=== PATIENT | male | born 1950 | race Caucasian/White ===

== ENCOUNTER 2019-03-17 14:41 | Inpatient (IN) | payer MEDICARE ==
[2019-03-17 15:05] LABS: #Eosinphils 0.1 thou/uL (0.0-0.7); #Monocytes 0.5 thou/uL (0.11-0.59); #Neutrophils 4.2 thou/uL (1.40-6.50); %Basophils 0.2 % (0.0-1.0); %Lymphocytes 30.2 % (21.0-51.0); %Monocytes 6.7 % (0.0-10.0); %Neutrophils 61.8 % (42.0-75.0); Hemoglobin 15.5 g/dL (14.0-18.0); Mean Corpuscular HGB CONC 33.9 g/dL (32.0-36.0); Mean Corpuscular Hemoglobin 32.8 pg (27.0-31.0); Mean Corpuscular Volume 96.6 fL (78.0-98.0); Mean Platelet Volume 7.5 fL (7.4-10.4); Platelet Count 253 thou/uL (130-400); RBC Distribution Width 11.2 % (11.5-14.5); Red Blood Cell (RBC) Count 4.74 mill/uL (4.70-6.10); White Blood Cell (WBC) Count 6.8 thou/uL (4.8-10.8)
--- NOTE | 2019-03-17 15:12 | RAD ---
Chest AP view INDICATION: Chest pain with palpitations COMPARISON: September 01, 2015 FINDINGS: Lungs:The lungs are clear Cardiac silhouette:The cardiomediastinal silhouette appears within normal limits. Pulmonary vasculature:Normal Pleural spaces:No pleural effusion or pneumothorax is demonstrated. Upper abdomen:No abnormality seen. Osseous structures: No acute osseous abnormality. Additional findings:None. IMPRESSION: No acute cardiopulmonary abnormality.
[2019-03-17 15:37] LABS: ALT (SGPT) 21 U/L (8-55); AST (SGOT) 34 U/L (5-34); Albumin 4.3 g/dL (3.4-4.8); Alkaline Phosphatase 67 U/L (40-110); Anion Gap 16 mmol/L (10-20); BUN (Urea Nitrogen) 16 mg/dL (8.4-25.7); Bilirubin, Total 1.2 mg/dL (0.2-1.2); CK (CPK) 169 U/L (30-200); Calc. Creatinine Clearance 0 mL/min (70-130); Calcium 9.5 mg/dL (7.8-10.44); Carbon Dioxide 23 mmol/L (23-31); Chloride 102 mmol/L (98-107); Estimated GFR-MDRD 76; Globulin 4.3 g/dL (2.4-3.5); Glucose 91 mg/dL (80-115); Protein, Total 8.6 g/dL (5.8-8.1); Sodium 136 mmol/L (136-145)
[2019-03-17] MEDS ORDERED: Magnesium 2 GM/50 ML BAG (IN WATER) ONE (15:38)
[2019-03-17] MEDS ORDERED: Diltiazem 125 MG/25 ML ONE (16:23)
[2019-03-17 16:33] LABS: Prothrombin Time 13.6 SEC (12.0-14.7)
[2019-03-17 16:34] LABS: PTT 32.1 SEC (22.9-36.1)
[2019-03-17 16:45] LABS: Acetaminophen Less than 6.0 mcg/mL (10.0-30.0); Alcohol Less than 10 mg/dL (Less than 10); Salicylate Less than 8.0 mg/dL (15.0-30.0)
[2019-03-17 16:46] LABS: Magnesium 3.3 mg/dL (1.6-2.6)
[2019-03-17 17:00] LABS: Bilirubin Negative (Negative); Blood, Urine Negative (Negative); Clarity Clear (Clear); Glucose, Urine (Dipstick) Normal (Negative); Leukocyte Negative Leu/uL (Negative); Nitrite Negative (Negative); Protein, Urine (Dipstick) Negative (Neg-Trace); Urobilinogen Normal mg/dL (Less than 2)
[2019-03-17 17:08] LABS: Amphetamine Not Detected (NotDetected); Barbiturates Screen Not Detected (NotDetected); Benzodiazepine Screen Not Detected (NotDetected); Cocaine Metabolite Screen Not Detected (NotDetected); Medtox Control Line Valid? VALID (VALID); Medtox Reader # READER 4; Methadone Not Detected (NotDetected); Methamphetamine Not Detected (NotDetected); Opiate Screen Not Detected (NotDetected); Oxycodone Screen Not Detected (NotDetected); Phencyclidine (PCP) Not Detected (NotDetected); THC/Cannabinoid Screen Not Detected (NotDetected); Tricyclic Screen Not Detected (NotDetected)
[2019-03-17] MEDS ORDERED: Acetaminophen 325 MG TAB PO PRN (17:34)
[2019-03-17] MEDS ORDERED: Enoxaparin Sodium 80 MG/0.8 ML SYRINGE ONE (18:23)
--- NOTE | 2019-03-17 18:26 | PDOC.EVN ---
Event Note - Event Note Event Note: [id number] HP
[2019-03-17 18:32] LABS: Troponin I Less than 0.010 ng/mL (< 0.028)
--- NOTE | 2019-03-17 21:08 | HP ---
CHIEF COMPLAINT: Palpitations. HISTORY OF PRESENT ILLNESS: Mr. Funes is a 68-year-old male with past medical history of atrial fibrillation, cardioversion and ablation back in 2015, presented to the emergency room with tachycardia and palpitations that started Thursday. The patient reports that he was seen at Urgent Care one week ago for flu-like symptoms, discharged with antibiotics for possible pneumonia. The patient followed up today with his primary care physician and was told to go to the emergency room because of tachycardia and heart rate of 149. Workup in the emergency room; the patient was found to be in atrial fibrillation/atrial flutter with 2:1 block. The patient was given diltiazem, followed by diltiazem drip. ED physician discussed the case with neon glass bender, who advised to continue with diltiazem drip, start Lovenox, admit and get an echo, possible cardioversion in a.m. if the patient remains in atrial flutter/atrial fibrillation. The patient otherwise denies chest pain, nausea, vomiting, or abdominal pain. Denies fever or chills. The patient is being admitted to the hospital for further management. PAST MEDICAL HISTORY: 1. Hyperlipidemia. 2. Benign prostatic hypertrophy. 3. Kidney stone. 4. Atrial fibrillation/flutter. PAST SURGICAL HISTORY: 1. Cardiac ablation on 07/23/2015. 2. Skin cancer removal. 3. Cardioversion. SOCIAL HISTORY: The patient drinks socially. No smoking history. Lives at home with family. FAMILY HISTORY: Reviewed and noncontributory. ALLERGIES: NO KNOWN ALLERGIES. REVIEW OF SYSTEMS: Review of 14 systems negative except what is mentioned in history of present illness. PHYSICAL EXAMINATION: GENERAL: The patient is awake, alert, does not appear to be in acute distress. VITAL SIGNS: Blood pressure 115/72; pulse initially was 145, currently is 122; respiratory rate is 20; temperature 97.9; and oxygen saturation is 100% on room air. HEAD AND NECK: Normocephalic, atraumatic. Eyes are equal and reactive to light, clear and anicteric. Neck is supple. No JVD. CHEST: Fair bilateral air entry. HEART: Irregularly irregular, tachycardic. ABDOMEN: Soft, nontender. Bowel sounds present. NEUROLOGIC: Awake, alert, and oriented x3. PSYCHIATRIC: Normal mood. EXTREMITIES: No clubbing, no cyanosis. MUSCULOSKELETAL: No calf tenderness. No joint tenderness. GENITOURINARY: No suprapubic tenderness. No flank tenderness. LABORATORY DATA: Urine drug screen negative. TSH is 1.2. Sodium 136, potassium 5.0, BUN is 76, and creatinine 0.9. Troponin 0.01. CBC; WBC 6.8, hemoglobin 16.5, and platelets 263. IMAGING DATA: Chest x-ray, no acute finding. ASSESSMENT: A 68-year-old male with history of atrial fibrillation/flutter with ablation/cardioversion back in 2015, presents with palpitations. The patient was found to be in atrial fibrillation/flutter with rapid ventricular response. 1. Atrial flutter with rapid ventricular response. 2. Hyperlipidemia. 3. Benign prostatic hypertrophy. 4. History of atrial fibrillation/flutter. 5. History of cardioversion/ablation. PLAN: 1. Admit. 2. Telemetry monitoring. 3. Continue with IV diltiazem drip. 4. Anticoagulation started in the ED. 5. 2D echo. 6. Pit Shovel Operator consulted for evaluation and further recommendations. 7. Reconcile home medications. 8. DVT prophylaxis. The patient is on anticoagulation. EXPECTED LENGTH OF STAY: Two midnights or more. Job ID: [id number]
[2019-03-17 21:20] VITALS: BMI 23.6
[2019-03-17 21:29] LABS: Troponin I 0.014 ng/mL (< 0.028)
[2019-03-17] MEDS: Sodium Chloride 0.9% 1,000 ML IV SCH (21:44)
[2019-03-17] MEDS: Famotidine/PF 20 mg/2ml Vial SLOW IVP SCH (21:46)
[2019-03-18] MEDS: Diltiazem 125 MG in Sodium Chloride 0.9% 100 ML IVPB SCH ×2 (01:05→10:04)
[2019-03-18 04:43] LABS: #Eosinphils 0.1 thou/uL (0.0-0.7); #Lymphocytes 2.3 thou/uL (1.20-3.40); #Monocytes 0.5 thou/uL (0.11-0.59); #Neutrophils 4.5 thou/uL (1.40-6.50); %Basophils 0.1 % (0.0-1.0); %Eosinophils 1.8 % (0.0-10.0); %Lymphocytes 30.5 % (21.0-51.0); %Neutrophils 60.6 % (42.0-75.0); Hemoglobin 13.4 g/dL (14.0-18.0); Mean Corpuscular HGB CONC 34.4 g/dL (32.0-36.0); Mean Platelet Volume 6.9 fL (7.4-10.4); Platelet Count 250 thou/uL (130-400); Red Blood Cell (RBC) Count 4.07 mill/uL (4.70-6.10); White Blood Cell (WBC) Count 7.5 thou/uL (4.8-10.8)
[2019-03-18 05:07] LABS: Anion Gap 10 mmol/L (10-20); BUN (Urea Nitrogen) 17 mg/dL (8.4-25.7); Calc. Creatinine Clearance 94 mL/min (70-130); Calcium 8.3 mg/dL (7.8-10.44); Carbon Dioxide 26 mmol/L (23-31); Chloride 105 mmol/L (98-107); Estimated GFR-MDRD 87; Glucose 98 mg/dL (80-115); Potassium 4.1 mmol/L (3.5-5.1); Sodium 137 mmol/L (136-145)
[2019-03-18 09:00] LABS: Hemoglobin 14.1 g/dL (14.0-18.0); Platelet Count 285 thou/uL (130-400)
[2019-03-18] MEDS ORDERED: Enoxaparin Sodium 80 MG/0.8 ML SYRINGE SC SCH (09:00)
[2019-03-18] MEDS: Sodium Chloride 0.9% 1,000 ML IV SCH ×2 (10:05→11:34)
[2019-03-18] MEDS: Famotidine/PF 20 mg/2ml Vial SLOW IVP SCH ×2 (10:06→20:53)
[2019-03-18] MEDS ORDERED: PROPOFOL 200 MG/20 ML VIAL ONE (11:11)
--- NOTE | 2019-03-18 11:48 | PDOC.EVN ---
Event Note - Event Note Event Note: [id number] progress
--- NOTE | 2019-03-18 12:09 | PRG ---
DATE OF SERVICE: 03/18/2019 The patient is being followed after he is admitted for atrial fibrillation/flutter with rapid ventricular response. SUBJECTIVE: As per the patient, he said that he had an episode this morning of ?panic attack and felt nauseous and lightheaded, resolved. The patient continues to be in atrial fibrillation with heart rate in the low 100s. OBJECTIVE: GENERAL: Does not appear to be in acute distress. VITAL SIGNS: Temperature 97.6, heart rate 110, respiratory rate 18, blood pressure 99/65. HEAD AND NECK: Normocephalic and atraumatic. NECK: Supple. No JVD. CHEST: Fair bilateral air entry. HEART: Irregularly irregular, tachycardic. ABDOMEN: Soft, nontender. Bowel sounds are present. NEUROLOGIC: Awake, alert, and oriented x3. PSYCH: Unable to assess. EXTREMITIES: No clubbing. No cyanosis. MUSCULOSKELETAL: No back tenderness. No joint tenderness. GENITOURINARY: No suprapubic tenderness. No flank tenderness. IMAGING STUDIES: 2D echo is still pending. ASSESSMENT AND PLAN: 1. A 68-year-old male with history of atrial fibrillation/flutter with history of ablations/cardioversion back in 2016, presents with palpitations, was found to be in atrial fibrillation/flutter with rapid ventricular response. 2. Atrial flutter with rapid ventricular response. 3. Hyperlipidemia. 4. Benign prostatic hypertrophy. 5. History of cardioversion/ablation in the past. PLAN: 1. Continue with telemetry monitoring. 2. The patient is on IV diltiazem drip. 3. Cardiology is being consulted for further management. A 2D echo results to be followed. Continue with anticoagulation. Check TSH. Job ID: [id number]
[2019-03-18] MEDS ORDERED: PROPOFOL 20 ML ONE ×2 (15:35→15:37)
--- NOTE | 2019-03-18 16:08 | CON ---
DATE OF CONSULTATION: 03/18/2019 REASON FOR CONSULTATION: Atrial flutter with RVR. HISTORY OF PRESENT ILLNESS: Mr. Funes is a 68-year-old gentleman, previously known to our practice for history of persistent atrial fibrillation. He is a retired teacher. He was taken to the EP lab and underwent PVAI with Dr. Cazares on 07/23/2015. Following his ablation, he developed early recurrence during his recovery phase and underwent cardioversion with Multaq for arrhythmia suppression. He did not tolerate Multaq therapy and had some GI side effects with this medication. This was discontinued. Since that time, he has undergone a normal recovery following his ablation, and ultimately, his oral anticoagulation was stopped for CHADS-VASc score of 1 at that time, . We find that he presents to the emergency room yesterday in atrial flutter with RVR. Mr. Funes had been experiencing flu-like symptoms and was taking some [id number]-yawpehz medications for his symptoms. He went to his primary care provider, was started on antibiotics for possible respiratory illness. During a followup appointment, it was found that his heart rate was elevated at approximately 150 beats per minute. An EKG was performed, showing atrial flutter and he was then redirected to the emergency room. Since that time, he has been placed on diltiazem drip with limited success at controlling his rates. Despite his ongoing RVR, he is minimally symptomatic and is feeling markedly improved even this morning. He denies any heart racing, palpitations, chest pain, pressure, syncope, near syncope, stroke, or stroke-like symptoms. REVIEW OF SYSTEMS: Positive for flu-like symptoms, malaise, and weakness. A 12-point review of systems was negative and as per HPI. PAST MEDICAL HISTORY: 1. Persistent atrial fibrillation status post PVAI on 07/23/2015 with early recurrence, prompting cardioversion and temporary Multaq therapy. 2. Normal coronary arteries by prior left heart catheterization in the remote past. 3. Migraines. 4. Chronic kidney disease, stage 3. 5. Preserved LVEF. HOME MEDICATIONS: 1. Stiolto daily. 2. Robitussin DM p.r.n. flu symptoms. 3. Flomax 0.4 mg daily. 4. Pravastatin 40 mg nightly. 5. Doxycycline 100 mg p.o. q.12 for recent respiratory infection. 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 Denies alcohol, tobacco, or illicit drug use. FAMILY HISTORY: Negative for sudden cardiac . OBJECTIVE: VITAL SIGNS: Temperature 97.9, pulse 139, blood pressure 120/69, respirations 16, and oxygen is 96% on room air. GENERAL: The patient is alert and oriented. Speech is clear. Affect is appropriate. He is in no apparent distress at time of the exam. HEENT: He is normocephalic and atraumatic. Sclerae anicteric. EOMs are intact. Oral mucosa is moist and pink with adequate dentition. NECK: Supple without jugular venous distention. There is no lymphadenopathy. Carotids are without bruit. LUNGS: Clear to auscultation bilaterally. Slightly diminished in the bases, but respirations are even and unlabored with good bilateral excursion. CARDIAC: His heart rate is regular, but rapid with crisp S1 and S2. His PMI is nondisplaced. ABDOMEN: Soft and nontender without palpable masses. Hepatojugular reflux is negative. EXTREMITIES: Warm and dry to touch. Well perfused without clubbing, cyanosis, or edema. NEUROLOGIC: He is grossly intact and nonfocal. Gait was not assessed. DATABASE: Hematology: Unremarkable. Chemistry: Potassium 4.1 and creatinine is 0.87. Troponins were negative. TSH 1.02 and free T4 of 1.49. Liver enzymes were within normal limits. An echocardiogram performed on 03/18/2019, estimates ejection fraction of 50% to 55% with mild MR and mild TR. Left atrium is of normal size. Right atrium is mildly enlarged. Telemetry and EKG showed atypical atrial flutter, largely with 2:1 AV conduction with rates of approximately 100 to 140 beats per minute, variable with his diltiazem drip. IMPRESSION: 1. Recurrent atrial arrhythmias with a history of persistent atrial fibrillation status post pulmonary venous ablation isolation in 2016, now sustaining an atypical atrial flutter. 2. History of normal coronaries with normal ejection fraction by recent echocardiogram. 3. History of renal insufficiency. 4. Evfk-jf-ennxqlos mitral regurgitation. PLAN AND RECOMMENDATIONS: Mr. Funes has experienced a late recurrence of atrial arrhythmias following an ablation in the remote past. He has not been anticoagulated for the past few years as OAC was discontinued in light of his low CHADS-VASc score with no recurrent atrial arrhythmias. It is unclear as to when his atrial arrhythmias began. He is largely asymptomatic with his rapid rate. We discussed atrial arrhythmias treatment options moving forward. As he is not on anticoagulation, immediate treatment could include a MEY to evaluate for any intracardiac thrombus before proceeding with cardioversion to restore sinus rhythm. Cardioversion may be enough restoring sinus rhythm as this could be an isolated event provoked by recent viral illness. Alternatively, he may require antiarrhythmic therapy for suppression of arrhythmias to maintain sinus rhythm following cardioversion. As he has not tolerated Multaq in the past, flecainide could be a consideration as his ejection fraction has been normal and he has been known to have normal coronary arteries by left heart catheterization. Alternatively, if recurrence is seen, we could consider a redo left atrial ablation in the future. If no arrangements for MEY cardioversion could be done at this time, we could have him undergo more rate control and be discharged and brought back as an outpatient for MEY cardioversion in the future. Thank you for allowing me to participate in the care of this patient. We will make arrangements. Job ID: [id number]
[2019-03-18] MEDS ORDERED: Flecainide 50 MG TAB PO SCH (16:15)
--- NOTE | 2019-03-18 16:26 | OP ---
DATE OF PROCEDURE: 03/18/2019 PROCEDURE PERFORMED: Electrical cardioversion. REASON FOR PROCEDURE: Mr. Funes is a 68-year-old man with prior history of atrial fibrillation status post pulmonary venous isolation procedure about 3 years ago, now with recurrent atypical atrial flutter. MEY prior to the procedure demonstrates no intracardiac clots, normal left atrial size. DESCRIPTION OF PROCEDURE: The patient received propofol by anesthesia specialist. After adequate level of sedation achieved, a synchronized 100-joule shock promptly converted the patient back to sinus rhythm. CONCLUSION: Successful cardioversion. PLAN: Start flecainide and oral anticoagulation with close followup in the office for consideration of redo ablation. Job ID: [id number]
--- NOTE | 2019-03-18 16:43 | EKG ---
Test Reason : Blood Pressure : / mmHG Vent. Rate : 116 BPM Atrial Rate : 278 BPM P-R Int : 000 ms QRS Dur : 084 ms QT Int : 332 ms P-R-T Axes : 000 092 -17 degrees QTc Int : 461 ms Atrial flutter with variable A-V block Rightward axis Abnormal QRS-T angle, consider primary T wave abnormality Abnormal ECG When compared with ECG of 17-MAR-2019 14:56, (Unconfirmed) No significant change was found Confirmed by DR. Deborah BENEDICT ([id number]) on 03/18/2019 4:42:37 PM Referred By: HECTOR Confirmed By:DR. Deborah BENEDICT
[2019-03-18] MEDS: Apixaban 5 MG TAB PO SCH (20:53)
[2019-03-19] MEDS: Sodium Chloride 0.9% 1,000 ML IV SCH (05:53)
[2019-03-19] MEDS: Apixaban 5 MG TAB PO SCH (08:43)
[2019-03-19] MEDS: Famotidine/PF 20 mg/2ml Vial SLOW IVP SCH (08:44)
[2019-03-19] MEDS ORDERED: Flecainide 50 MG TAB PO SCH (09:00)
[2019-03-19 11:54] VITALS: BP 109/71; TEMP 97.6
--- NOTE | 2019-03-19 17:19 | ECHO ---
DATE OF SERVICE: 03/18/19 REFERRING PHYSICIAN: Dr. Jeff Leblanc REASON FOR PROCEDURE: The patient is a pleasant 68-year-old man with history of persistent atrial fibrillation. Prior ablat ion three years ago. Recurrent atrial flutter off and on in duration. Here for MEY to rule out floccu lence. The patient is not on anticoagulation. PROCEDURE: The patient received Propofol by Anesthesia specialist. After adequate level of sedation achieved, a standard transesophageal echocardiogram probe was passed into the esophagus without diff iculty. Patient tolerated the procedure well, no complications noted. RESULTS: Left atrium is normal in size about 3.4 cm in horizontal diameter. The left atrial appendage well vi sualized and contains no clots. The left atrial appendage velocities are up to 55 cm per second, whi ch is adequate. Four out of four pulmonary veins were seen without stenosis. Interatrial septum is w ithout defect. The mitral valve has mild regurgitation only. Left ventricular systolic function is pr eserved. LV systolic function is in normal range about 60%. This could be due to the tachycardia. Rig ht sided chambers are nondilated. Mild tricuspid regurgitation. The aortic valve is without regurgita tion or stenosis. Three leaflets are identified. Pericardial space without significant effusion. The visualized portion of ascending and descending aorta without aneurysm, dissection or significant ath eroma. CONCLUSION: 1. No intracardiac clots. 2. Normal left atrial size. 3. Normal left ventricular systolic function. 4. Mild mitral regurgitation. PLAN: Proceed with cardioversion.
--- NOTE | 2019-03-21 08:13 | DIS ---
DATE OF ADMISSION: 03/17/2019 DATE OF DISCHARGE: 03/19/2019 DISCHARGE DISPOSITION: Home. FOLLOWUP: 1. Follow up with primary care physician, Dr. Lloyd in 1 week. 2. Follow up with Electrophysiology, Dr. Murray as scheduled. 3. Follow up with Cardiology in 2 weeks. ALLERGIES: NO KNOWN DRUG ALLERGIES. THE PATIENT WAS SEEN AND EXAMINED ON THE DAY OF DISCHARGE. DENIES ANY NEW COMPLAINTS. NO CHEST PAIN, SHORTNESS OF BREATH, OR PALPITATIONS REPORTED. DISCHARGE MEDICATIONS: 1. Toprol-XL 50 mg daily. 2. Flecainide 50 mg b.i.d. 3. Eliquis 5 mg b.i.d. 4. Pravastatin 40 mg at bedtime. 5. Robitussin as needed. INPATIENT RAIL CREW MEMBER: Electrophysiology, Dr. Murray. INPATIENT PROCEDURES: 1. On March 18, 2019, the patient underwent cardioversion with synchronized 100 joules. 2. Echocardiogram showed left ventricular ejection fraction, 50% to 55% with mild mitral regurgitation, mild tricuspid regurgitation. BRIEF HOSPITAL COURSE: The patient is a 68-year-old male with paroxysmal atrial fibrillation/flutter, presented to the emergency room with palpitations. Please refer to the history and physical dated March 17, 2019 for further details. The patient was admitted to the hospital with a diagnosis of atrial flutter with rapid ventricular response. He was started on Cardizem drip along with anticoagulation. He was evaluated by Electrophysiology. He underwent successful cardioversion yesterday. He has been started on flecainide along with Toprol-XL and Eliquis. He understands the risk associated with anticoagulation. He appears stable for discharge. SIGNIFICANT LABORATORY DATA: Troponin negative. On 03/18/2019, BUN 17 and creatinine 0.87. Labs on 03/17/2019: TSH was 1.24 with free T4 of 1.49. BUN 16, creatinine 0.98. FINAL DIAGNOSES: 1. Atrial flutter with rapid ventricular response, status post cardioversion this admission. 2. Hyperlipidemia. 3. Benign prostatic hypertrophy. 4. History of atrial fibrillation/flutter status post cardioversion and ablation in the past. 5. Chronic kidney disease stage 2. 6. Normal TSH with slightly elevated free T4. PLAN: Plan of care was discussed with the patient in detail. He stated understanding. Job ID: [id number]
--- NOTE | 2019-03-21 09:53 | CON ---
DATE OF CONSULTATION: HISTORY OF PRESENT ILLNESS: Isaias Funes is a 68-year-old white male, who initially presented in May 2015, with 2 to 3 weeks of progressive dyspnea on exertion. He denied any palpitations or feeling of a racing heartbeat. At times, he would feel his carotid pulses and would note they were irregular. He would develop substernal chest pressure without diaphoresis, nausea, vomiting, or shortness of breath. This would awaken him at night when he would get up out of bed, and in 5 minutes, it would resolve. He was found to be in atrial fibrillation with fast ventricular response at Dr. Tilley's office. CT angiogram of the chest showed no evidence of pulmonary embolism. He underwent cardiac catheterization, and he had normal coronary arteries. He is placed on Lovenox 1 mg/kg b.i.d. He is placed on Multaq and underwent electrical cardioversion and returned to sinus rhythm. He was discharged on Eliquis and Multaq. He had recurrence of atrial fibrillation and underwent ablation in [place]. This was on July 23, 2015. He was admitted here on July 25, due to increased shortness of breath. No pulmonary emboli on CT angiogram of the chest. He was diuresed with IV Lasix and continued on Multaq. He has been seen in the office in August 2015, and was found to be in atrial flutter with 2:1 block. He underwent electrical cardioversion of this. He was again started on Multaq after cardioversion from the atypical atrial flutter. In January 2016, EKG remained in sinus rhythm, and his Eliquis was discontinued due to CHADS-VASc score of 1. He has not been seen during the interim. Apparently, he has been doing very well. He states that over the last 2 to 3 months, he has noted some increased shortness of breath, did not feel any palpitations or chest discomfort. Recently, he has had URI type symptoms, has been taking the antibiotic and niwz-apr-gmpqdly cold preparation. He saw his primary care physician yesterday, was found to have a heart rate of 149 per minute, and was told to go to the emergency room. He was in atypical atrial flutter with the 2:1 block. Given this, he was started on diltiazem to slow his rate, as well as Lovenox for anticoagulation. PAST MEDICAL HISTORY: History of atrial fibrillation/atrial flutter, hyperlipidemia, benign prostatic hypertrophy, and nephrolithiasis. PAST SURGICAL HISTORY: Atrial fibrillation ablation. SOCIAL HISTORY: He does not smoke. He drinks occasionally. HOME MEDICATIONS: Include: 1. Doxycycline 100 mg b.i.d. 2. Robitussin DM. 3. Pravastatin 40 mg at bedtime. 4. Tamsulosin 0.4 mg daily. 5. Xylitol 550 mg daily. ALLERGIES: NONE. REVIEW OF SYSTEMS: A 10-point review of systems is otherwise unremarkable. PHYSICAL EXAMINATION: VITAL SIGNS: Blood pressure 120/69, pulse of 109 and irregular. HEENT: PERRL. NECK: Supple. CHEST: Clear. CARDIAC: S1 and S2 normal without any S3, S4, or murmurs. ABDOMEN: Normal bowel sounds without tenderness or organomegaly. EXTREMITIES: Revealed no clubbing, cyanosis, or edema. NEUROLOGIC: Grossly intact. Skin : Warm and dry. LABORATORY DATA: EKG initially revealed atypical atrial flutter with 2:1 block. Hemoglobin 13.4, hematocrit 39.1, white count 7.5, platelets 250,000. Sodium 137, potassium 4.1, chloride 105, carbon dioxide 26, BUN 17, creatinine 0.87. Troponin I is normal. TSH is normal. Urine drug screen is unremarkable. IMPRESSION: 1. Recurrence of atypical flutter. 2. History of atrial fibrillation ablation in July 2015. 3. Hyperlipidemia. 4. Benign prostatic hypertrophy. 5. Normal coronary arteries. PLAN: The patient will be maintained on anticoagulation at this time. With the atypical flutter, this would probably best be treated with electrical cardioversion. Electrophysiology will be consulted. Job ID: [id number]
== END 2019-03-19 12:33 | disposition home or self-care (01) | DRG 310 ==
LOC: ERS 14:41 → 2NO 17:10
PROVIDERS: ADMIT Internal Medicine; ATTEND Internal Medicine
PROC: 5A2204Z Restoration of Cardiac Rhythm, Single (ICD-10-PCS; principal; 2019-03-18)
PROC: B24BZZ4 Ultrasonography of Heart with Aorta, Transesophageal (ICD-10-PCS; 2019-03-18)
DX: I48.4 Atypical atrial flutter (principal); I48.0 Paroxysmal atrial fibrillation; E78.5 Hyperlipidemia, unspecified; N40.0 Benign prostatic hyperplasia without lower urinary tract symptoms; N18.2 Chronic kidney disease, stage 2 (mild); G43.909 Migraine, unspecified, not intractable, without status migrainosus; I34.0 Nonrheumatic mitral (valve) insufficiency; Z87.442 Personal history of urinary calculi; Z79.899 Other long term (current) drug therapy
CPT/HCPCS: 36415; 71045; 80048; 80053; 80306; 80307; 81003; 82550; 83690; 83735; 83880; 84439; 84443; 84484; 85025; 85610; 85730; 92960; 93005; 93010; 93306; 93312; 94760; J1650; J2704; J3475; J3490; S0028

== ENCOUNTER 2019-03-27 04:16 | Emergency (ER) | payer MEDICARE ==
[2019-03-27] MEDS ORDERED: Lorazepam 1 MG TAB ONE (04:56)
[2019-03-27 05:15] LABS: #Basophils 0.1 thou/uL (0.0-0.2); #Eosinphils 0.2 thou/uL (0.0-0.7); #Lymphocytes 2.7 thou/uL (1.20-3.40); #Monocytes 0.7 thou/uL (0.11-0.59); #Neutrophils 7.1 thou/uL (1.40-6.50); %Basophils 0.8 % (0.0-1.0); %Eosinophils 1.5 % (0.0-10.0); %Lymphocytes 25.1 % (21.0-51.0); %Monocytes 6.1 % (0.0-10.0); %Neutrophils 66.5 % (42.0-75.0); Hemoglobin 15.7 g/dL (14.0-18.0); Mean Corpuscular HGB CONC 34.3 g/dL (32.0-36.0); Mean Corpuscular Hemoglobin 33.5 pg (27.0-31.0); Mean Corpuscular Volume 97.8 fL (78.0-98.0); Mean Platelet Volume 6.7 fL (7.4-10.4); Platelet Count 352 thou/uL (130-400); RBC Distribution Width 11.2 % (11.5-14.5); Red Blood Cell (RBC) Count 4.69 mill/uL (4.70-6.10); White Blood Cell (WBC) Count 10.7 thou/uL (4.8-10.8)
[2019-03-27 05:41] LABS: ALT (SGPT) 31 U/L (8-55); AST (SGOT) 25 U/L (5-34); Albumin 4.5 g/dL (3.4-4.8); Alkaline Phosphatase 64 U/L (40-110); Anion Gap 16 mmol/L (10-20); BUN (Urea Nitrogen) 26 mg/dL (8.4-25.7); Bilirubin, Total 0.9 mg/dL (0.2-1.2); Calc. Creatinine Clearance 0 mL/min (70-130); Calcium 9.7 mg/dL (7.8-10.44); Carbon Dioxide 24 mmol/L (23-31); Chloride 102 mmol/L (98-107); Estimated GFR-MDRD 65; Globulin 3.8 g/dL (2.4-3.5); Glucose 103 mg/dL (80-115); Potassium 4.2 mmol/L (3.5-5.1); Protein, Total 8.3 g/dL (5.8-8.1); Sodium 138 mmol/L (136-145)
--- NOTE | 2019-03-27 08:30 | RAD ---
Exam: Chest one view HISTORY:Cardioversion. Comparison: 03/17/2019 FINDINGS: Cardiac silhouette: Normal Aorta: Unremarkable Pulmonary vessels: Normal Costophrenic angles: Clear LUNGS: No masses or consolidation. Pneumothorax: None Osseous abnormalities: None IMPRESSION: No acute cardiopulmonary process.
== END 2019-03-27 06:10 | disposition home or self-care (01) ==
LOC: ERS 04:16
DX: F43.9 Reaction to severe stress, unspecified (principal); F41.9 Anxiety disorder, unspecified; E78.5 Hyperlipidemia, unspecified; E78.00 Pure hypercholesterolemia, unspecified; N40.0 Benign prostatic hyperplasia without lower urinary tract symptoms; Z79.899 Other long term (current) drug therapy; Z79.01 Long term (current) use of anticoagulants; I48.91 Unspecified atrial fibrillation
CPT/HCPCS: 36415; 71045; 80053; 84484; 85025; 93005

== ENCOUNTER 2019-03-29 09:24 | Emergency (ER) | payer MEDICARE ==
[2019-03-29 10:08] LABS: #Eosinphils 0.1 thou/uL (0.0-0.7); #Lymphocytes 1.4 thou/uL (1.20-3.40); #Monocytes 0.4 thou/uL (0.11-0.59); %Basophils 0.5 % (0.0-1.0); %Eosinophils 1.4 % (0.0-10.0); %Monocytes 4.8 % (0.0-10.0); %Neutrophils 75.4 % (42.0-75.0); Hemoglobin 15.3 g/dL (14.0-18.0); Mean Corpuscular HGB CONC 34.7 g/dL (32.0-36.0); Mean Corpuscular Hemoglobin 33.5 pg (27.0-31.0); Mean Corpuscular Volume 96.6 fL (78.0-98.0); Platelet Count 346 thou/uL (130-400); RBC Distribution Width 11.2 % (11.5-14.5); Red Blood Cell (RBC) Count 4.57 mill/uL (4.70-6.10)
[2019-03-29] MEDS ORDERED: ALPRAZolam 0.5 MG TAB ONE ×2 (10:16→10:47)
[2019-03-29 10:32] LABS: ALT (SGPT) 26 U/L (8-55); AST (SGOT) 18 U/L (5-34); Albumin 4.6 g/dL (3.4-4.8); Alkaline Phosphatase 58 U/L (40-110); Anion Gap 10 mmol/L (10-20); BUN (Urea Nitrogen) 21 mg/dL (8.4-25.7); Bilirubin, Total 1.6 mg/dL (0.2-1.2); Calc. Creatinine Clearance 0 mL/min (70-130); Calcium 9.7 mg/dL (7.8-10.44); Carbon Dioxide 28 mmol/L (23-31); Chloride 102 mmol/L (98-107); Estimated GFR-MDRD 70; Globulin 3.5 g/dL (2.4-3.5); Glucose 100 mg/dL (80-115); Protein, Total 8.1 g/dL (5.8-8.1); Sodium 136 mmol/L (136-145)
--- NOTE | 2019-03-29 11:02 | RAD ---
PORTABLE CHEST 1 VIEW: DATE: 03/29/2019. TIME: 10:38 AM. HISTORY: Recent cardioversion. FINDINGS/IMPRESSION: Comparison is made with the exam of 03/27/2019. The heart size is normal. The lungs are well expanded without lobar consolidation, pneumothoraces, o r pleural effusions. There is a plate of linear subsegmental atelectasis in the right lower lung. POS: TPC
--- NOTE | 2019-04-02 11:11 | EKG ---
Test Reason : ANXIETY Blood Pressure : / mmHG Vent. Rate : 053 BPM Atrial Rate : 053 BPM P-R Int : 202 ms QRS Dur : 088 ms QT Int : 438 ms P-R-T Axes : 079 065 024 degrees QTc Int : 410 ms Sinus bradycardia Otherwise normal ECG Confirmed by MATTEO MARQUEZ ([id number]), research editor MAGUE PATINO ([id number]) on 04/02/2019 11:10:47 AM Referred By: JIMMY Confirmed By:MATTEO MARQUEZ
== END 2019-03-29 11:43 | disposition home or self-care (01) ==
LOC: ERS 09:24
DX: F41.9 Anxiety disorder, unspecified (principal); F43.0 Acute stress reaction; E78.00 Pure hypercholesterolemia, unspecified; Z87.442 Personal history of urinary calculi
CPT/HCPCS: 36415; 71045; 80053; 84484; 85025; 93005